=== PATIENT | female | born 1955 | race Caucasian/White ===

== ENCOUNTER → 2024-10-04 06:44 | Outpatient (REF) | payer MEDICARE, OTHER, SELFPAY | LOC: RCS 06:44 | PROVIDERS: ATTENDING PHYSICIAN Student in an Organized Health Care Education/Training Program; FAMILY PHYSICIAN Internal Medicine | DX: I10 Essential (primary) hypertension (principal); R06.09 Other forms of dyspnea | CPT/HCPCS: 78452; 93017; A9500 ==